=== PATIENT | female | born 2000 | race Caucasian/White ===

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

== ENCOUNTER 2021-02-18 12:37 | Emergency (ER) | payer MEDICAID | END 2021-02-18 14:16 | disposition left against medical advice (07) | LOC: ED 12:37 | DX: Z53.21 Procedure and treatment not carried out due to patient leaving prior to being seen by health care provider (principal) ==

== ENCOUNTER 2021-02-18 18:36 | Outpatient (CLI) | payer MEDICAID | END 2021-02-18 18:37 | disposition EMS.NT | LOC: EMS 18:36 | DX: U07.1 COVID-19 (principal); R11.2 Nausea with vomiting, unspecified ==

== ENCOUNTER 2021-05-02 14:55 | Emergency (ER) | payer MEDICAID ==
[2021-05-02] MEDS ORDERED: SODIUM CHLORIDE 0.9% 1,000 ML IV STA (15:15)
[2021-05-02] MEDS ORDERED: ONDANSETRON 4 MG/2 ML VIAL IVP STA (15:15)
--- NOTE | 2021-05-02 15:15 | ED Physician Documentation ---
History of Present Illness - Stated complaint Stated Complaint: NAUSEA,VOMITING, +PREG - Chief complaint Chief Complaint: Abd Pain - Additonal information Additional information: 20-year-old female presents emergency department for evaluation of 3 days uncontrolled nausea and vomiting as well as lower pelvic pain. Denies any vaginal bleeding or discharge. She is newly . LMP 03/08/2021. She has not yet established with an OB but is scheduled to do so on 27 May at [facility]. 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 : None HEENT: None Psych: Anxiety, Bipolar disorder Musculoskeletal: None Derm: None - Past Surgical History Past Surgical History: No - Present Medications Home Medications: Ambulatory Orders Medication Instructions Recorded Confirmed Quetiapine Fumarate 100 mg PO DAILY 02/07/19 02/07/19 Sulfamethoxazole/Trimethoprim 1 each PO BID 7 Days #14 tablet 02/07/19 [Sulfamethoxazole-Tmp Ds Tablet] Ondansetron Odt [Zofran] 4 mg TL Q6H PRN #10 tablet 05/02/21 cephALEXin [Keflex] 500 mg PO BID #14 cap 05/02/21 - Allergies Allergies/Adverse Reactions: Allergies Allergy/AdvReac Type Severity Reaction Status Date / Time No Known Drug Allergies Allergy Verified 05/02/21 15:01 - Social History Does the pt smoke?: Yes Smoking Status: Current every day smoker Does the pt drink ETOH?: Yes Does the pt have substance abuse?: Yes - Immunizations Immunizations are current?: Yes - POLST Patient has POLST: No PD ED PE NORMAL - General General: Alert and oriented X 3, Well developed/nourished - HEENT HEENT: Atraumatic, Pharynx benign - Neck Neck: Supple, no meningeal sign - Cardiac Cardiac: RRR, No murmur - Respiratory Respiratory: No respiratory distress - Abdomen Abdomen: Normal bowel sounds, Soft, Non tender (Mild lower midline tenderness to palpation without guarding or rebound.) - Back Back: No CVA TTP, No spinal TTP - Derm Derm: Normal color, Warm and dry - Extremities Extremities: No deformity - Neuro Neuro: Alert and oriented X 3, 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 2-12 intact Eye Opening: Spontaneous Motor: Obeys Commands Verbal: Oriented GCS Score: 15 Results - Vitals Vitals: Vital Signs - 24 hr 05/02/21 15:01 Temperature 36.5 C Heart Rate 83 Respiratory 16 Rate Blood Pressure 130/78 O2 Saturation 100 Oxygen O2 Source Room air - Labs Labs: Laboratory Tests 05/02/21 05/02/21 05/02/21 15:13 15:13 15:13 WBC 10.7 RBC 4.77 Hgb 14.5 Hct 41.2 MCV 86.4 MCH 30.4 MCHC 35.2 RDW 12.0 Plt Count 223 MPV 10.6 Neut # (Auto) 8.6 H Lymph # (Auto) 1.5 Day # (Auto) 0.5 Eos # (Auto) 0.0 Baso # (Auto) 0.0 Absolute Nucleated RBC 0.00 Nucleated RBC % 0.0 Sodium 134 L Potassium 3.2 L Chloride 99 L Carbon Dioxide 20 L Anion Gap 15.0 H BUN 9 Creatinine 0.5 Estimated GFR (MDRD) 159 Glucose 96 Calcium 9.4 Total Bilirubin 1.2 H AST 25 ALT 41 Alkaline Phosphatase 40 L Total Protein 7.7 Albumin 4.6 Globulin 3.1 Albumin/Globulin Ratio 1.5 Lipase 25 HCG, Quant 679032.00 Urine Color Urine Clarity Urine pH Ur Specific [place] Urine Protein Urine Glucose (UA) Urine Ketones Urine Occult Blood Urine Nitrite Urine Bilirubin Urine Urobilinogen Ur Leukocyte Esterase Urine RBC Urine WBC Ur Squamous Epith Cells Urine Bacteria Urine Mucus Ur Microscopic Review Urine Culture Comments Blood Type 05/02/21 05/02/21 15:15 16:58 WBC RBC Hgb Hct MCV MCH MCHC RDW Plt Count MPV Neut # (Auto) Lymph # (Auto) Day # (Auto) Eos # (Auto) Baso # (Auto) Absolute Nucleated RBC Nucleated RBC % Sodium Potassium Chloride Carbon Dioxide Anion Gap BUN Creatinine Estimated GFR (MDRD) Glucose Calcium Total Bilirubin AST ALT Alkaline Phosphatase Total Protein Albumin Globulin Albumin/Globulin Ratio Lipase HCG, Quant Urine Color YELLOW Urine Clarity CLEAR Urine pH 6.0 Ur Specific [place] >=1.030 H Urine Protein 100 H Urine Glucose (UA) NEGATIVE Urine Ketones >=80 H Urine Occult Blood NEGATIVE Urine Nitrite NEGATIVE Urine Bilirubin NEGATIVE Urine Urobilinogen 0.2 (NORMAL) Ur Leukocyte Esterase NEGATIVE Urine RBC None Seen Urine WBC 0-3 Ur Squamous Epith Cells MANY Squamous H Urine Bacteria Moderate H Urine Mucus Few Strands Ur Microscopic Review INDICATED Urine Culture Comments NOT INDICATED Blood Type A POSITIVE - Rads (name of study) OB US Radiology: Other (Per ct scan special procedures technologist live IUP measuring at 8 weeks. heart rate 173. Moderate size corpus luteal cyst. Very small subchorionic hemorrhage.) PD MEDICAL DECISION MAKING - ED course Complexity details: reviewed results, re-evaluated patient, considered differential, d/w patient ED course: Well-appearing 20-year-old female who is in her first trimester of her first presents with 3 days of uncontrolled nausea and vomiting. She also endorsed lower pelvic pain and cramping but no vaginal bleeding or spotting. Patient is Rh+. Screening hCG is 117,000. She is noted to have some modest hypokalemia. She was given 40 of K here in the emergency department. She is previously noted to be hypokalemic as well. Screening ultrasound did show a live IUP with good heart rate with associated small subchorionic hemorrhage. Findings were discussed with the patient. She is scheduled to follow-up with her OB in early May. Modest bacteria will start on Keflex. Zofran for nausea. Clinically no findings to suggest ectopic . Emergent return precautions were discussed. Departure - Departure Disposition: 01 Home, Self Care Clinical Impression: Antepartum asymptomatic bacteriuria in first trimester, Threatened in first trimester Nausea and vomiting Qualifiers: Vomiting type: unspecified Qualified Code(s): R11.2 - Nausea with vomiting, unspecified Subchorionic hemorrhage in first trimester Qualifiers: Fetus number: single or unspecified fetus Qualified Code(s): O41.8X10 - Other specified disorders of amniotic fluid and membranes, first trimester, not applicable or unspecified; O46.8X1 - Other antepartum hemorrhage, first trimester Condition: Stable Record reviewed to determine appropriate education?: Yes Instructions: ED Preg Morning Sickness Prescriptions: cephALEXin [Keflex] 500 mg PO BID #14 cap Ondansetron Odt [Zofran] 4 mg TL Q6H PRN #10 tablet PRN Reason: Nausea / Vomiting Comments: Lainey you were seen today in the emergency department for nausea and vomiting for 3 days. You are in your first trimester . The ultrasound confirms a living 8-week fetus with a normal heart rate. There is a small subchorionic hemorrhage. This is a condition where the placenta partially tears away from the uterus. Most women who have a small subchorionic hemorrhage will go on to have a normal but it does put you at risk for early miscarriage. In order to address your nausea I have sent a prescription for some Zofran to the right [facility] in [place]. There is bacteria in your urine and this is always treated in the first trimester of so please fill the prescription for the Keflex and begin taking as directed. Please discuss this emergency department visit with your OB provider's office on Wednesday to determine if they would like to see you sooner and follow-up. If at any point you have severe vaginal bleeding, suddenly severe lower abdominal pain, any fainting episodes or uncontrolled vomiting then please return to the ER for a second evaluation.
[2021-05-02 15:20] LABS: BASOPHILS % (AUTO) 0.3 %; EOSINOPHILS % (AUTO) 0.1 %; HCT - HEMATOCRIT 41.2 % (37.0-47.0); HGB - HEMOGLOBIN 14.5 g/dL (12.0-16.0); LYMPHOCYTES # (AUTO) 1.5 10^3/uL (1.5-3.5); LYMPHOCYTES % (AUTO) 14.2 %; MEAN CORPUSCULAR HEMOGLOBIN 30.4 pg (27.0-31.0); MEAN CORPUSCULAR HGB CONC 35.2 g/dL (32.0-36.0); MEAN CORPUSCULAR VOLUME 86.4 fL (81.0-99.0); MEAN PLATELET VOLUME 10.6 fL (7.9-10.8); MONOCYTES # (AUTO) 0.5 10^3/uL (0.0-1.0); MONOCYTES % (AUTO) 4.5 %; NEUTROPHILS # (AUTO) 8.6 10^3/uL (1.5-6.6); NEUTROPHILS % (AUTO) 80.6 %; PLT - PLATELET COUNT 223 10^3/uL (130-450); RED BLOOD COUNT 4.77 10^6/uL (4.20-5.40); WHITE BLOOD COUNT 10.7 x10^3/uL (4.8-10.8)
[2021-05-02 15:30] LABS: BILIRUBIN,URINE NEGATIVE (NEGATIVE); GLUCOSE, URINE (UA) NEGATIVE (NEGATIVE); KETONES,URINE (UA) >=80 mg/dL (NEGATIVE); LEUKOCYTE ESTERASE, URINE NEGATIVE (NEGATIVE); NITRITE,URINE NEGATIVE (NEGATIVE); OCCULT BLOOD,URINE NEGATIVE (NEGATIVE); PROTEIN,URINE 100 mg/dL (NEGATIVE); UROBILINOGEN,URINE 0.2 (NORMAL) E.U./dL (NORMAL)
[2021-05-02 15:32] LABS: CLARITY,URINE CLEAR (CLEAR)
[2021-05-02 15:33] LABS: ALBUMIN 4.6 g/dL (3.2-5.5); ALBUMIN/GLOBULIN RATIO 1.5 (1.0-2.2); BILIRUBIN,TOTAL 1.2 mg/dL (0.2-1.0); CALCIUM 9.4 mg/dL (8.5-10.3); CREATININE 0.5 mg/dL (0.4-1.0); POTASSIUM 3.2 mmol/L (3.5-5.0); TOTAL PROTEIN 7.7 g/dL (6.7-8.2)
[2021-05-02 15:45] LABS: BACTERIA,URINE Moderate /HPF (None Seen); MUCUS,URINE Few Strands; RBC,URINE None Seen /HPF (0-5); SQUAMOUS EPITHELIAL CELL,UR MANY Squamous (<= Few); WBC,URINE 0-3 /HPF (0-5)
--- NOTE | 2021-05-02 17:07 | Ultrasound Report ---
PROCEDURE: OB First Trimester INDICATIONS: lower abd cramping uncontrolled n v OUTSIDE/PRIOR DATING DATA: Last menstrual period (LMP): March 08, 2021. LMP-based estimated date of delivery (EFE): December 13, 2021. First dating scan (date): May 02, 2021. Estimated date of delivery (EFE) from first dating scan: December 12, 2021. TECHNIQUE: Real-time scanning was performed of the fetus and maternal pelvic organs, with image documentation. COMPARISON: None. FINDINGS: Embryo: [place]-rump length measures 1.62 cm, compatible with an 8 week gestation. Heart rate: 173 Measurement variability in dating: +/- 4 weeks by LMP, +/- 7 days by mean sac diameter (use before 6 weeks gestation if crown-rump length not able to be measured), +/- 5 days by crown-rump length (6-12 weeks gestation). Maternal organs: A 0.8 x 1.1 x 0.4 cm hypoechoic area seen adjacent to the gestational sac, compatibl e with a subchorionic hemorrhage. The ovaries appear normal. IMPRESSION: 1. Live single intrauterine gestation with adjacent subchorionic hemorrhage as detailed above. Reviewed by: Montez Bridges MD on 05/02/2021 5:06 PM PDT Approved by: Montez Bridges MD on 05/02/2021 5:06 PM PDT Station ID: [id number]
[2021-05-02 17:51] VITALS: BP 122/76
== END 2021-05-02 17:50 | disposition home or self-care (01) ==
LOC: ED 14:55
DX: O46.8X1 Other antepartum hemorrhage, first trimester (principal); O41.8X10 Other specified disorders of amniotic fluid and membranes, first trimester, not applicable or unspecified; O99.331 Smoking (tobacco) complicating pregnancy, first trimester; F17.200 Nicotine dependence, unspecified, uncomplicated; Z3A.08 8 weeks gestation of pregnancy; O26.891 Other specified pregnancy related conditions, first trimester; R82.71 Bacteriuria
CPT/HCPCS: 36415; 80053; 81001; 81003; 81025; 83690; 84702; 85025; 86900; 86901; 87086; 96361; 96374; 99282

== ENCOUNTER 2023-03-28 06:53 | Emergency (ER) | payer MEDICAID ==
--- NOTE | 2023-03-28 07:15 | ED Physician Documentation ---
PD HPI NVD - Stated complaint Stated Complaint: N/V/D/THROAT PX - Chief complaint Chief Complaint: Abd Pain - History obtained from History obtained from: Patient - History of Present Illness Timing - onset: How many days ago (3) Timing - details: Abrupt onset, Still present Associated symptoms: Fever, Abdominal pain (periumbilical to RLQ), Loss of kari etite. No: Dysuria, Vaginal bleeding, Vaginal dc Improved by: Laying still. No: Vomiting Worsened by: Eating Similar symptoms before: Has not had sx before Review of Systems Constitutional: reports: Fever (subjective the past day), Chills, Fatigue Nose: denies: Rhinorrhea / runny nose, Congestion Throat: denies: Sore throat Respiratory: denies: Cough GI: denies: Diarrhea : denies: Discharge, Vaginal bleeding PD PAST MEDICAL HISTORY - Past Medical History Past Medical History: Yes Cardiovascular: None Respiratory: None Neuro: None Endocrine/Autoimmune: None GI: GERD YARD JOCKEY: None : None HEENT: None Psych: Anxiety, Bipolar disorder Musculoskeletal: None Derm: None - Past Surgical History Past Surgical History: No - Present Medications Home Medications: Ambulatory Orders Medication Instructions Recorded Confirmed Famotidine [Pepcid] 20 mg PO DAILY #20 tablet 03/28/23 Ondansetron Odt [Zofran] 4 mg TL Q6H PRN #10 tablet 03/28/23 - Allergies Allergies/Adverse Reactions: Allergies Allergy/AdvReac Type Severity Reaction Status Date / Time No Known Drug Allergies Allergy Verified 03/28/23 07:01 - Social History Does the pt smoke?: No Smoking Status: Former smoker Does the pt drink ETOH?: Yes Does the pt have substance abuse?: Yes Substance Use and Type: Marijuana - Immunizations Immunizations are current?: Yes - POLST Patient has POLST: No PD ED PE NORMAL - Vitals Vital signs reviewed: Yes - General General: Alert and oriented X 3, Well developed/nourished - Cardiac Cardiac: RRR, No murmur - Respiratory Respiratory: No respiratory distress, Clear bilaterally - Abdomen Abdomen: Soft, Non distended, Other (Very tender with guarding and percussion tenderness in the periumbilical to right lower quadrant area. Mild generalized tenderness in the rest of the abdomen.). No: Normal bowel sounds (decreased) - Female Female : Deferred - Rectal Rectal: Deferred - Back Back: No CVA TTP - Derm Derm: Normal color, Warm and dry Results - Vitals Vitals: Vital Signs - 24 hr 03/28/23 03/28/23 03/28/23 07:02 09:05 11:00 Temperature 36.5 C 36.6 C Heart Rate 90 86 77 Respiratory 18 16 14 Rate Blood Pressure 158/103 H 138/92 H 132/90 H O2 Saturation 99 100 98 03/28/23 03/28/23 03/28/23 13:00 14:20 15:31 Temperature 36.8 C Heart Rate 76 87 76 Respiratory 18 14 18 Rate Blood Pressure 142/82 H 136/93 H 114/76 O2 Saturation 98 97 98 Oxygen O2 Source Room air - Labs Labs: Laboratory Tests 03/28/23 03/28/23 03/28/23 07:15 07:15 07:15 WBC 12.8 H RBC 5.33 Hgb 15.4 Hct 46.5 MCV 87.2 MCH 28.9 MCHC 33.1 RDW 12.3 Plt Count 289 MPV 11.4 H Neut # (Auto) 10.3 H Lymph # (Auto) 1.8 [place] # (Auto) 0.6 Eos # (Auto) 0.0 Baso # (Auto) 0.0 Absolute Nucleated RBC 0.00 Nucleated RBC % 0.0 Sodium 136 Potassium 3.4 L Chloride 100 L Carbon Dioxide 26 Anion Gap 10.0 BUN 13 Creatinine 0.7 Estimated GFR (MDRD) 106 Glucose 144 H Calcium 10.0 Total Bilirubin 1.4 H AST 18 ALT 16 Alkaline Phosphatase 49 Total Protein 7.7 Albumin 5.0 Globulin 2.7 Albumin/Globulin Ratio 1.9 Lipase 13 Serum HCG, Qual NEGATIVE Urine Color Urine Clarity Urine pH Ur Specific [place] Urine Protein Urine Glucose (UA) Urine Ketones Urine Occult Blood Urine Nitrite Urine Bilirubin Urine Urobilinogen Ur Leukocyte Esterase Urine RBC Urine WBC Ur Squamous Epith Cells Amorphous Sediment Urine Bacteria Urine Casts Urine Mucus Ur Microscopic Review Urine Culture Comments Nasal Adenovirus (PCR) Nasal B. parapertussis DNA (PCR) Nasal Coronavir 229E PCR Nasal Coronavir HKU1 PCR Nasal Coronavir NL63 PCR Nasal Coronavir OC43 PCR Nasal Enterovir/Rhinovir PCR Nasal Influenza B PCR Nasal Influenza A PCR Nasal Parainfluen 1 PCR Nasal Parainfluen 2 PCR Nasal Parainfluen 3 PCR Nasal Parainfluen 4 PCR Nasal RSV (PCR) Nasal B.pertussis DNA PCR Nasal C.pneumoniae (PCR) Xander Human Metapneumo PCR Nasal M.pneumoniae (PCR) Nasal SARS-CoV-2 (PCR) 03/28/23 03/28/23 08:45 08:45 WBC RBC Hgb Hct MCV MCH MCHC RDW Plt Count MPV Neut # (Auto) Lymph # (Auto) [place] # (Auto) Eos # (Auto) Baso # (Auto) Absolute Nucleated RBC Nucleated RBC % Sodium Potassium Chloride Carbon Dioxide Anion Gap BUN Creatinine Estimated GFR (MDRD) Glucose Calcium Total Bilirubin AST ALT Alkaline Phosphatase Total Protein Albumin Globulin Albumin/Globulin Ratio Lipase Serum HCG, Qual Urine Color YELLOW Urine Clarity SL. CLOUDY Urine pH 7.5 Ur Specific [place] 1.025 Urine Protein 100 H Urine Glucose (UA) NEGATIVE Urine Ketones 15 H Urine Occult Blood NEGATIVE Urine Nitrite NEGATIVE Urine Bilirubin SMALL H Urine Urobilinogen 2 H Ur Leukocyte Esterase NEGATIVE Urine RBC 0-5 Urine WBC 0-3 Ur Squamous Epith Cells MANY Squamous H Amorphous Sediment Marked Urine Bacteria Few Urine Casts 3-5 Hyaline Casts Urine Mucus Few Strands Ur Microscopic Review INDICATED Urine Culture Comments NOT INDICATED Nasal Adenovirus (PCR) NOT DETECTED Nasal B. parapertussis DNA (PCR) NOT DETECTED Nasal Coronavir 229E PCR NOT DETECTED Nasal Coronavir HKU1 PCR NOT DETECTED Nasal Coronavir NL63 PCR NOT DETECTED Nasal Coronavir OC43 PCR NOT DETECTED Nasal Enterovir/Rhinovir PCR NOT DETECTED Nasal Influenza B PCR NOT DETECTED Nasal Influenza A PCR NOT DETECTED Nasal Parainfluen 1 PCR NOT DETECTED Nasal Parainfluen 2 PCR NOT DETECTED Nasal Parainfluen 3 PCR NOT DETECTED Nasal Parainfluen 4 PCR NOT DETECTED Nasal RSV (PCR) NOT DETECTED Nasal B.pertussis DNA PCR NOT DETECTED Nasal C.pneumoniae (PCR) NOT DETECTED Xander Human Metapneumo PCR NOT DETECTED Nasal M.pneumoniae (PCR) NOT DETECTED Nasal SARS-CoV-2 (PCR) NOT DETECTED - Rads (name of study) Abd/Pelvic CT Relevant Findings:: Prelim report reviewed, Discussed with rads (Appendix ont seen distinctly. Inflammation and spotted free air localized RLQ without abscess/free fluid, c/w perforated appy.), EMP independent interpretation of test pelvic US Relevant Findings:: Prelim report reviewed (normal uterus without inflammation. normal flow both ovaries. No free fluid. ), EMP independent interpretation of test repeat abd/Pelvic CT with oral contrast Relevant Findings:: Prelim report reviewed (prior free air spots are now gone. intestine better visualized with oral contrast. Appendix still not visualized. ) PD Medical Decision Making - ED course Complexity details: considered differential (3 days of nausea and vomiting without diarrhea associated with consistent periumbilical to right lower quadrant pain that has increased overnight. Fever chills. No URI symptoms. Lightheaded and weakness.), d/w patient Reviewed Lab Results: The patient has fairly significant tenderness in the periumbilical to right low er quadrant area. She does appear pale. She is feeling improved with IV fluids nausea medicine and some pain medicine. Recheck abdomen is still locally tender with guarding in the right lower area. Concerning for appendicitis. Shared decision with the patient to get a CT scan as she does not really sound like stomach flu or viral type illness. The CT is consistent with a localized perforated appendicitis with inflammation in the area and speckles of free air. No organized fluid collection nor free fluid. I talked with Dr. Dixon is on-call for surgery and he will evaluate the CT scan. Presumption would be the patient to be in the hospital for antibiotics and fluids and presumptive surgery. Defer to Dr. Dixon for that treatment algorithm. ED course: 22-year-old female with onset of periumbilical to right lower abdominal pain associated with nausea and vomiting 3 days ago that has steadily worsened. Severe pain overnight last night into today. Pain has been consistent and on rate he leaves with emesis. She did have a feeling of fever and chills. She has had some throat pain subsequent to vomiting but did not have any URI symptoms preceding. On exam she has quite significant tenderness periumbilical to right lower quadrant with percussion and rebound tenderness as well. The remainder of the abdomen has some mild tenderness diffusely with referred to the lower central. Bowel sounds are present but hypoactive. She denied any dysuria nor vaginal discharge. She has not had similar episodes. Other people at home are not ill. Her white count is elevated. Her chemistry panel did not show any notable significant abnormalities. Urinalysis was without any signs of infection test was negative. I have a high suspicion for local process such as appendicitis and shared decision with the patient was for a CT of the abdomen. This was done with IV contrast per usual. The reading of this showed no visible appendix but significant inflammatory changes in that area and a consideration of small pointed areas of free air. The patient was given IV fluids, Zofran antiemetic,a dn Dilaudid 0.5 mg x 2 for pain. She did have improved symptoms. Also given Zosyn IV after CT report. I talked with Dr. Kelly who is on-call for surgery. He asked that we get a pelvic ultrasound. This was done and did not show any acute abnormalities of the uterus. Small cyst noted in the ovaries. No free fluid. Dr. Kelly also asked for repeat CT scan with oral contrast. This also was done and the reading from the radiologist says that better visualization of the intestine. No signs of free air at this point so either resorbed or was artifactual. Still no visualization of the appendix. I recontact Dr. Dr. Kelly who will come and see the patient. I still have good suspicion for appendicitis given the patient's progression of symptoms and area of tenderness. She is cloth mercerizer back tender in the right lower quadrant though appears more comfortable after fluids and medications. Dr. Kelly came to ER and examined the pt and repeat CT. He feels there is not appendicitis based on second CT. To discharge the patient. I talked with pt and her mother about repeat exam if not completely resolved in 1-2 days and return if worsening again. Rx antiemetic but did not give pain meds as I want symptoms to be unmasked of pain. Lower suspicion of appy at this point. Departure - Departure Disposition: 01 Home, Self Care Clinical Impression: Volume depletion Abdominal pain Qualifiers: Abdominal location: right lower quadrant Qualified Code(s): R10.31 - Right lower quadrant pain Vomiting Qualifiers: Vomiting type: unspecified Nausea presence: with nausea Qualified Code(s): R11.2 - Nausea with vomiting, unspecified Condition: Stable Record reviewed to determine appropriate education?: Yes Instructions: ED Abdominal Pain Appendx Poss Follow-Up: Zeke Kelly MD [Provider Admit Priv/Credential] - Prescriptions: Famotidine [Pepcid] 20 mg PO DAILY #20 tablet Ondansetron Odt [Zofran] 4 mg TL Q6H PRN #10 tablet PRN Reason: Nausea / Vomiting Comments: Your symptoms could possibly relate to a viral stomach flu though the progression and location of the tenderness was concerning for appendicitis. The initial CT scan did read that way though the repeat one with the oral contrast looked less like inflammation in the area but they still did not identify the appendix by the radiology report. You do seem to be better with the IV fluids and medications. At this point we will presume not appendicitis as per Dr. Kelly's assessment. However if you are not fully improved in the next day or 2 or if you have increasing pain, fever, repeated vomiting despite medication etc. then return to the ER. I would suggest a repeat follow-up in 1 to 2 days unless you are 100% improved. Meanwhile such as frequent fluids and bland food initially and progress diet as tolerated. Your stomach will be irritated so famotidine daily for the next couple of weeks. Ondansetron/Zofran if needed for nausea. It is okay to take Tylenol every 4-6 hours if needed for pains or cramps. I sent your prescriptions to your preferred pharmacy. Forms: PCP List Discharge Date/Time: 03/28/23 15:34
[2023-03-28 07:26] LABS: BASOPHILS % (AUTO) 0.2 %; EOSINOPHILS % (AUTO) 0.1 %; HCT - HEMATOCRIT 46.5 % (37.0-47.0); HGB - HEMOGLOBIN 15.4 g/dL (12.0-16.0); LYMPHOCYTES # (AUTO) 1.8 10^3/uL (1.5-3.5); LYMPHOCYTES % (AUTO) 14.4 %; MEAN CORPUSCULAR HEMOGLOBIN 28.9 pg (27.0-31.0); MEAN CORPUSCULAR HGB CONC 33.1 g/dL (32.0-36.0); MEAN CORPUSCULAR VOLUME 87.2 fL (81.0-99.0); MEAN PLATELET VOLUME 11.4 fL (7.9-10.8); MONOCYTES # (AUTO) 0.6 10^3/uL (0.0-1.0); MONOCYTES % (AUTO) 4.8 %; NEUTROPHILS # (AUTO) 10.3 10^3/uL (1.5-6.6); NEUTROPHILS % (AUTO) 80.3 %; PLT - PLATELET COUNT 289 10^3/uL (130-450); RED BLOOD COUNT 5.33 10^6/uL (4.20-5.40); RED CELL DISTRIBUTION WIDTH 12.3 % (12.0-15.0); WHITE BLOOD COUNT 12.8 x10^3/uL (4.8-10.8)
[2023-03-28 07:41] LABS: ALBUMIN/GLOBULIN RATIO 1.9 (1.0-2.2); BILIRUBIN,TOTAL 1.4 mg/dL (0.2-1.0); CREATININE 0.7 mg/dL (0.6-1.3); POTASSIUM 3.4 mmol/L (3.5-4.5); TOTAL PROTEIN 7.7 g/dL (6.4-8.9)
[2023-03-28] MEDS: HYDROmorphone 0.5 MG/0.5 ML SYRINGE IVP STA ×2 (07:44→10:07)
[2023-03-28] MEDS: ONDANSETRON 4 MG/2 ML VIAL IVP STA (07:44)
[2023-03-28] MEDS: KETOROLAC 15 MG/ML VIAL IVP STA (07:44)
[2023-03-28] MEDS: SODIUM CHLORIDE 0.9% 1,000 ML IV STA ×2 (07:45→10:36)
[2023-03-28] MEDS ORDERED: iohexoL-300 100 ML VIAL ONE ×2 (08:27→10:59)
[2023-03-28 08:37] LABS: HCG,QUALITATIVE BLOOD NEGATIVE
[2023-03-28 08:53] LABS: BILIRUBIN,URINE SMALL (NEGATIVE); GLUCOSE, URINE (UA) NEGATIVE (NEGATIVE); KETONES,URINE (UA) 15 mg/dL (NEGATIVE); LEUKOCYTE ESTERASE, URINE NEGATIVE (NEGATIVE); NITRITE,URINE NEGATIVE (NEGATIVE); OCCULT BLOOD,URINE NEGATIVE (NEGATIVE); PH,URINE 7.5 PH (5.0-7.5); PROTEIN,URINE 100 mg/dL (NEGATIVE); UROBILINOGEN,URINE 2 E.U./dL (NORMAL)
[2023-03-28 08:56] LABS: CLARITY,URINE SL. CLOUDY (CLEAR)
[2023-03-28 08:58] LABS: AMORPHOUS SEDIMENT,UR Marked /LPF; BACTERIA,URINE Few /HPF (None Seen); CASTS, URINE 3-5 Hyaline Casts /LPF; MUCUS,URINE Few Strands; RBC,URINE 0-5 /HPF (0-5); SQUAMOUS EPITHELIAL CELL,UR MANY Squamous (<= Few); WBC,URINE 0-3 /HPF (0-5)
[2023-03-28] MEDS: iohexoL-300 100 ML VIAL IVP ONE (08:59)
--- NOTE | 2023-03-28 09:33 | CT Report ---
PROCEDURE: CT of abdomen and pelvis with contrast INDICATIONS: umbilical/RLQ pain with vomiting 3 days TECHNIQUE: Helical axial CT of the abdomen and pelvis was obtained after intravenous contrast adminis tration and reformatted in multiple planes. Radiation dose reduction was achieved using automated exp osure control or adjustment of mA and/or kV according to patient size. COMPARISON: None FINDINGS: Lower thorax: The lung bases are clear. Heart size normal. No hiatal hernia. Liver: Normal in size and attenuation. No contour deformity present. Biliary system: No calcified cholelithiasis or pericholecystic inflammation. No evidence of bile du ct dilatation. Pancreas: Unremarkable without mass or inflammation evident. Spleen: Normal in size and density. Adrenals: Normal morphology and density. Reproductive system: Unremarkable as visualized. Urinary system: Normal renal size and attenuation. No renal calculi, hydronephrosis, or solid mass p resent. Urinary bladder unremarkable. Gastrointestinal system: In the right lower quadrant, the cecum is low in the pelvis and circumferen tial large amount of pericecal inflammatory change. The appendix itself is not discretely visualized, and several foci of extraluminal air probably reflects air trapped within the mesenteric leaves. No evidence of organized abscess present. Findings are consistent with a ruptured appendicitis. Addition ally, there is wall thickening and pericolonic inflammatory change in the left colon near the splenic flexure which probably reflects under distended bowel and possibly secondary inflammatory change Appendix: As above Peritoneal spaces: No mesenteric or retroperitoneal adenopathy. Vasculature: The IVC, aorta and iliac vasculature are unremarkable. Abdominal wall: Abdominal wall is intact without evidence of ventral or inguinal hernias. Musculoskeletal: Normal bone mineralization. No acute fractures. IMPRESSION: Probable ruptured appendicitis with pericecal inflammatory change and adjacent trapped free air. No e vidence of organized abscess or obstruction. Note: Critical results were discussed with Dr. Lazaro on 03/28/2023 at 8:25 AM [place] time. Reviewed by: Teofiol Jefferson MD on 03/28/2023 8:32 AM AKST Approved by: Teofilo Jefferson MD on 03/28/2023 8:32 AM AKST Station ID: [id number]
[2023-03-28 09:47] LABS: B. PARAPERTUSSIS- RESP PCR PAN NOT DETECTED; B. PERTUSSIS- RESP PCR PANEL NOT DETECTED; C. PNEUMONIAE- RESP PCR PANEL NOT DETECTED; CORONAVIRUS 229E-RESP PCR NOT DETECTED; CORONAVIRUS HKU1-RESP PCR NOT DETECTED; CORONAVIRUS NL63-RESP PCR NOT DETECTED; CORONAVIRUS OC43-RESP PCR NOT DETECTED; HUMAN METAPNEUMOVIRUS NOT DETECTED; INFLUENZA A- RESP PCR PANEL NOT DETECTED; INFLUENZA B - RESP PCR PANEL NOT DETECTED; M. PNEUMONIAE- RESP PCR PANEL NOT DETECTED; PARAINFLUENZA VIRUS 1 NOT DETECTED; PARAINFLUENZA VIRUS 2 NOT DETECTED; PARAINFLUENZA VIRUS 3 NOT DETECTED; PARAINFLUENZA VIRUS 4 NOT DETECTED; RHINOVIRUS/ENTEROVIRUS NOT DETECTED; RSV- RESP PCR PANEL NOT DETECTED; SARS-CoV-2 -RESP PCR PANEL NOT DETECTED
[2023-03-28] MEDS: PIPERACILLIN/TAZOBACTAM 3.375 GM in SODIUM CHLORIDE 0.9% MINIBAG 100 ML IV STA (10:07)
[2023-03-28] MEDS ORDERED: DIATRIZOATE MEGLU/DIATRIZO SOD 30 ML BOTTLE PO ONE (10:59)
--- NOTE | 2023-03-28 11:34 | Ultrasound Report ---
PROCEDURE: Pelvic w/Transvag+Doppler Comp INDICATIONS: pelvic pain, R TECHNIQUE: Transabdominal/transvaginal ultrasound of the pelvis was obtained. Endovaginal scanning wa s necessary due to incomplete visualization of the adnexal and endometrial structures by transabdomin al scanning. COMPARISON: None. FINDINGS: Uterine size: Uterus measures 7.6 x 4.0 x 4.9 cm, and is anteverted. Myometrium: The myometrium is homogeneous. Endometrium: The endometrium measures 9 mm in combined thickness. Right ovary: The right ovary measures 3.2 x 1.8 x 2.5 cm. Calculated ovarian volume 7.3 cc. Left ovary: The left ovary measures 2.3 x 1.7 x 1.6 cm. Calculated ovarian volume 4.5 cc. Other: No pathologic free abdominal or pelvic fluid. Both ovaries have appropriate vascularity IMPRESSION: Unremarkable ultrasound of the pelvis Reviewed by: Teofilo Jefferson MD on 03/28/2023 10:33 AM [facility] Approved by: Teofilo Jefferson MD on 03/28/2023 10:33 AM [facility] Station ID: [id number]
--- NOTE | 2023-03-28 12:48 | CT Report ---
PROCEDURE: CT abdomen pelvis with contrast INDICATIONS: RLQ pain, re-eval for ruptured appendix TECHNIQUE: Helical axial CT of the abdomen and pelvis was obtained after intravenous contrast adminis tration and reformatted in multiple planes. Oral contrast was utilized. Radiation dose reduction was achieved using automated exposure control or adjustment of mA and/or kV according to patient size. COMPARISON: CT abdomen pelvis 03/28/2023 at 0854 hours. FINDINGS: Lower thorax: The lung bases are clear. Heart size normal. No hiatal hernia. Liver: Normal in size and attenuation. No contour deformity present. Biliary system: No calcified cholelithiasis or pericholecystic inflammation. No evidence of bile du ct dilatation. Pancreas: Unremarkable without mass or inflammation evident. Spleen: Normal in size and density. Adrenals: Normal morphology and density. Reproductive system: Unremarkable as visualized. Urinary system: Normal renal size and attenuation. No renal calculi, hydronephrosis, or solid mass p resent. Dense contrast in the bladder from recent CT Gastrointestinal system: Oral contrast is now within the small bowel. The appearance in the right lo wer quadrant is much improved. Previously described extraluminal air has resolved. No CT evidence of free air. There is mild to moderate free fluid in the pelvis as well as probable 2.5 cm right adnexal cyst. The appendix is not separately identified. Colonic splenic flexure is also improved Appendix: As above Peritoneal spaces: No mesenteric or retroperitoneal adenopathy. No free air. No free fluid. Vasculature: The IVC, aorta and iliac vasculature are unremarkable. Abdominal wall: Abdominal wall is intact without evidence of ventral or inguinal hernias. Musculoskeletal: Normal bone mineralization. No acute fractures. IMPRESSION: Enteric contrast results in a much improved appearance of the right lower quadrant. Previously descri bed extraluminal air has resolved and must have been artifactual previously. The appendix remains non visualized, but no abscess present. Small amount of free fluid in pelvis and probable adnexal cyst. Consider follow-up ultrasound pelvis for further evaluation Reviewed by: Teofilo Jefefrson MD on 03/28/2023 11:47 AM [facility] Approved by: Teofilo Jefferson MD on 03/28/2023 11:47 AM [facility] Station ID: [id number]
--- NOTE | 2023-03-28 14:25 | CONSULTATION NOTE ---
Referring Provider Consult Date: 03/28/23 Chief Complaint - Chief Complaint Chief Complaint: n/v abdominal pain x 3 days History of Present Illness - History Obtained From Records Reviewed: yes History obtained from: pt Exam Limitations: none - History of Present Illness HPI Comment/Other: 3 days n/v abdominal pain. feeling much improved History - Past Medical History Cardiovascular: reports: None Respiratory: reports: None Neuro: reports: None Endocrine/Autoimmune: reports: None GI: reports: [employer]: reports: None : reports: None HEENT: reports: None Psych: reports: Anxiety, Bipolar disorder Musculoskeletal: reports: None Derm: reports: None MRSA Hx?: Yes - POLST Patient has POLST: No Meds/Allgy - Home Medications Home Medications: Ambulatory Orders Medication Instructions Recorded Confirmed No Known Home Medications 03/28/23 03/28/23 - Allergies Allergies/Adverse Reactions: Allergies Allergy/AdvReac Type Severity Reaction Status Date / Time No Known Drug Allergies Allergy Verified 03/28/23 07:01 Review of Systems - Other Findings Other Findings: 10 pt ros as above otherwise unremarkable Exam - Vital Signs Vital Signs: Vital Signs x48h Temp Pulse Resp BP Pulse Ox 03/28/23 14:20 98.3 C H 87 14 136/93 H 97 03/28/23 13:00 76 18 142/82 H 98 03/28/23 11:00 98 C H 77 14 132/90 H 98 03/28/23 09:05 86 16 138/92 H 100 03/28/23 07:02 36.5 C 90 18 158/103 H 99 - Physical Exam General Appearance: positive: No acute distress, Alert Eyes Bilateral: positive: PERRL, EOMI, No scleral icterus ENT: positive: No signs of dehydration Neck: positive: No JVD, Trachea midline Respiratory: positive: No respiratory distress Cardiovascular: positive: Regular rate & rhythm Abdomen: positive: Non-tender, No distention Neurologic/Psychiatric: positive: Oriented x3 Conclusion/Plan - Problem List (1) Abdominal pain Conclusion/Plan: 3 days n/v abdominal pain. feeling much improved. first ct difficult to read due to thin patient and no oral contrast. second ct and pelvic ultrasound normal including normal appendix. stomach flu. ok to d/c follow up prn Qualifiers: Abdominal location: right lower quadrant Qualified Code(s): R10.31 - Right lower quadrant pain - Lab Results Fish Bones: 03/28/23 07:15 03/28/23 07:15 - Diagnostic Imaging Results Diagnostic Imaging Results: positive: Read independently (first ct scan suggestive of advanced appendicitis. second ct scan with contrast normal including normal appendix pelvic ultrasound also normal)
[2023-03-28 15:36] VITALS: BP 114/76; O2SAT 98
== END 2023-03-28 15:34 | disposition home or self-care (01) ==
LOC: ED 06:53
DX: R10.31 Right lower quadrant pain (principal); R11.2 Nausea with vomiting, unspecified; Z87.891 Personal history of nicotine dependence
CPT/HCPCS: 36415; 74177; 76830; 76856; 80053; 81001; 83690; 84703; 85025; 87633; 93975; 96361; 96365; 96375; 96376; 99284; J1170; Q9963; Q9967; 81003; 87086